=== PATIENT | female | born 1950 | race Two or more races ===

== ENCOUNTER 2020-05-28 23:39 | Emergency (ER) | payer OTHER ==
[~2020-05-28] VITALS: Ht 160 cm; Wt 59.0 kg
[2020-05-28] MEDS ORDERED: NASAL MIST126 ML (23:48)
[2020-05-28] MEDS ORDERED: SYNTHROID88 MCG (23:48)
[2020-05-29] MEDS ORDERED: NAPROXEN375 MG PO (01:48)
[2020-05-29] MEDS ORDERED: BACITRACIN-POL3.5 GM OP (01:48)
== END 2020-05-29 02:02 | disposition home or self-care (01) ==
LOC: ER 23:39
DX: S61.215A Laceration without foreign body of left ring finger without damage to nail, initial encounter (principal); W26.0XXA Contact with knife, initial encounter; Y93.89 Activity, other specified; Y92.89 Other specified places as the place of occurrence of the external cause; Y99.8 Other external cause status